=== PATIENT | male | born 1985 | race Caucasian/White ===

== ENCOUNTER 2018-12-09 15:15 | Emergency (ER) | payer OTHER ==
[~2018-12-09] VITALS: Ht 172.7 cm; Wt 87.5 kg
[2018-12-09 15:27] VITALS: BP 115/76; Ht 172.7 cm; Wt 87.5 kg
== END 2018-12-09 16:35 | disposition home or self-care (01) ==
LOC: ED 15:15
DX: T22.00XA Burn of unspecified degree of shoulder and upper limb, except wrist and hand, unspecified site, initial encounter (principal); T31.0 Burns involving less than 10% of body surface; X17.XXXA Contact with hot engines, machinery and tools, initial encounter; Y93.89 Activity, other specified; Y92.89 Other specified places as the place of occurrence of the external cause; Y99.8 Other external cause status
CPT/HCPCS: 90715